=== PATIENT | female | born 1970 | race Caucasian/White ===

== ENCOUNTER → 2020-12-02 | Outpatient (CLI) | payer OTHER ==
[~2020-12-02] MED LIST: AUGMENTIN 875-1 EACH PO; BUPRENORPHIN-N1 EACH SL; CBD PO; CELECOXIB200 MG PO; CELEXA20 MG PO; ELIQUIS 2.5 MG2.5 MG PO; ESCITALOPRAM OX10 MG PO; GABAPENTIN800 MG PO; PERCOCET 10-321 EACH PO; SODIUM BICARBO650 MG PO; WELLBUTRIN XL300 M1 PO
== END ==
LOC: KOH-I 10:59
DX: M79.641 Pain in right hand (principal); S39.012A Strain of muscle, fascia and tendon of lower back, initial encounter; M47.817 Spondylosis without myelopathy or radiculopathy, lumbosacral region
CPT/HCPCS: 72110; 73130

== ENCOUNTER → 2020-12-26 | Outpatient (CLI) | payer OTHER ==
[2020-12-27 08:14] LABS: RHEUMATOID ARTHRITIS FACTOR <10.0 IU/mL (0.0-13.9)
[2020-12-27 09:14] LABS: VITAMIN D, 25-HYDROXY 26.3 ng/mL (30.0-100.0)
[2020-12-28 00:12] LABS: CCP ANTIBODIES IGG/IGA 5 units (0-19)
== END ==
LOC: LAB 12:34
PROVIDERS: Nurse Practitioner Family
DX: R53.83 Other fatigue (principal); M25.50 Pain in unspecified joint; M79.10 Myalgia, unspecified site; G43.909 Migraine, unspecified, not intractable, without status migrainosus; M10.9 Gout, unspecified; D89.9 Disorder involving the immune mechanism, unspecified; R76.8 Other specified abnormal immunological findings in serum
CPT/HCPCS: 36415; 82550; 82728; 83520; 84439; 84443; 84550; 85652; 86140; 86200; 86431

== ENCOUNTER 2021-01-08 17:28 | Emergency (ER) | payer OTHER | END 2021-01-08 19:16 | disposition home or self-care (01) | LOC: ER1 17:28 | DX: S86.911A Strain of unspecified muscle(s) and tendon(s) at lower leg level, right leg, initial encounter (principal); X50.1XXA Overexertion from prolonged static or awkward postures, initial encounter; Y92.410 Unspecified street and highway as the place of occurrence of the external cause | CPT/HCPCS: 73564; 99283 ==